=== PATIENT | male | born 1995 | race Caucasian/White ===

== ENCOUNTER 2021-12-12 22:43 | Emergency (ER) | payer OTHER ==
--- NOTE | 2021-12-12 22:53 | ED Physician Documentation ---
PD HPI CHEST PAIN - Stated complaint Stated Complaint: CHEST PX - Chief complaint Chief Complaint: Cardiac - History obtained from History obtained from: Patient - History of Present Illness Timing - onset: How many weeks ago (3) Timing - onset during: Rest, Light activity. No: Eating Timing - duration: Minutes Timing - details: Intermittant (he has had multiple brief episodes of seconds to minutes of sharp to aching substernal chest pain, occurring randomly without preceding symptoms. Occurs at rest and activity. Not associated with eating. No pain with breathing between times. Gets lightheaded with the pains.) Quality: Aching, Sharp, Pain. No: Pressure, Tightness Location: Substernal, Left chest Radiation: No: Neck, Back Improved by: No: Rest, Antacids Worsened by: Inspiration (deep breathing but not regular breaths). No: Exertion, Eating, Position Associated symptoms: Feeling faint / dizzy. No: Shortness of air, Diaphoresis, Palpitations Similar symptoms before: No diagnosis (seen by primary care without Dx as yet. Pt states pamela had COVID test done twice, that were negative. BP noted elevated with recent visit.) Recently seen: Clinic Review of Systems Constitutional: denies: Fever, Chills Nose: denies: Rhinorrhea / runny nose, Congestion Throat: denies: Sore throat Cardiac: denies: Palpitations, Pedal edema, Calf pain Respiratory: denies: Dyspnea, Cough GI: denies: Abdominal Pain, Nausea, Vomiting, Diarrhea Skin: denies: Rash, Lesions PD PAST MEDICAL HISTORY - Past Medical History Cardiovascular: None, Murmur (he states had murmur noted during basic training physical, with normal ECHO.) Respiratory: None Endocrine/Autoimmune: None GI: None - Present Medications Home Medications: Ambulatory Orders Medication Instructions Recorded Confirmed Albuterol Sulfate [Proair Hfa 1 - 2 puffs INH Q4H PRN 12/12/21 12/12/21 Inhaler] hydrOXYzine pamoate [Vistaril] 50 mg PO 12/12/21 Naproxen 500 mg PO BID #20 tab.sr 12/13/21 - Allergies Allergies/Adverse Reactions: Allergies Allergy/AdvReac Type Severity Reaction Status Date / Time Sulfa (Sulfonamide Allergy Unknown Verified 12/12/21 22:53 Antibiotics) PD ED PE NORMAL - Vitals Vital signs reviewed: Yes (presents tachycardic 106 at triage, but settles to normal rate. NSR.) - General General: Alert and oriented X 3, Well developed/nourished, Other (somewhat anxious. ) - HEENT HEENT: Pharynx benign - Neck Neck: Supple, no meningeal sign, No adenopathy, Thyroid normal - Cardiac Cardiac: RRR, No murmur - Respiratory Respiratory: Clear bilaterally, Other (no chestwall tenderness.) - Abdomen Abdomen: Soft, Non tender - Derm Derm: Normal color, Warm and dry - Extremities Extremities: Normal ROM s pain, No edema, No calf tenderness / cord - Neuro Neuro: Alert and oriented X 3, No motor deficit, Normal speech Results - Vitals Vitals: Oxygen O2 Source Room air - EKG (time done) 22:43 Rate: Rate (enter#) (96) Rhythm: NSR [place]: Normal Intervals: Normal [place] QRS: Normal Ischemia: Normal ST segments. No: ST elevation c/w ischemia, ST depression - Labs Labs: Laboratory Tests 12/12/21 12/12/21 12/12/21 23:20 23:20 23:20 WBC 7.8 RBC 4.81 Hgb 15.0 Hct 42.7 MCV 88.8 MCH 31.2 H MCHC 35.1 RDW 11.6 L Plt Count 295 MPV 8.7 Neut # (Auto) 4.0 Lymph # (Auto) 2.4 [place] # (Auto) 1.2 H Eos # (Auto) 0.1 Baso # (Auto) 0.0 Absolute Nucleated RBC 0.00 Nucleated RBC % 0.0 Sodium 136 Potassium 3.5 Chloride 99 L Carbon Dioxide 25 Anion Gap 12.0 BUN 12 Creatinine 0.9 Estimated GFR (MDRD) 104 Glucose 86 Calcium 9.3 Total Bilirubin 1.1 H AST 17 ALT 30 Alkaline Phosphatase 84 Troponin I High Sens 2.9 C-Reactive Protein 1.0 B-Natriuretic Peptide Total Protein 7.4 Albumin 4.8 Globulin 2.6 Albumin/Globulin Ratio 1.8 Lipase 22 12/12/21 23:20 WBC RBC Hgb Hct MCV MCH MCHC RDW Plt Count MPV Neut # (Auto) Lymph # (Auto) [place] # (Auto) Eos # (Auto) Baso # (Auto) Absolute Nucleated RBC Nucleated RBC % Sodium Potassium Chloride Carbon Dioxide Anion Gap BUN Creatinine Estimated GFR (MDRD) Glucose Calcium Total Bilirubin AST ALT Alkaline Phosphatase Troponin I High Sens C-Reactive Protein B-Natriuretic Peptide 5 Total Protein Albumin Globulin Albumin/Globulin Ratio Lipase - Rads (name of study) chest xray Radiology: Prelim report reviewed (normal), See rad report PD MEDICAL DECISION MAKING - ED course Complexity details: re-evaluated patient, considered differential, d/w patient ED course: does seem some anxiety component. Consider chest wall process or inflammatory condition, given sharp character and some slight pleuritic component. Certainly checked CXR and ECG/trop to ensure no more concerning process. Given the episodic pattern of the chest discomfort with lightheaded, could consider intermittent dysrhythmia. [facility] Departure - Departure Disposition: Home, Self Care Clinical Impression: Chest pain Qualifiers: Chest pain type: pleurodynia Qualified Code(s): R07.81 - Pleurodynia Condition: Stable Record reviewed to determine appropriate education?: Yes Instructions: ED Chest Pain Atypical Unkn Cause Follow-Up: [facility] [Provider Group] Prescriptions: Naproxen 500 mg PO BID #20 tab.sr Comments: Your EKG, chest x-ray, blood tests are normal without any signs of structural lung abnormality such as collapsed lung, pneumonia, fluid around the lung, nor any signs of heart injury such as heart failure or heart attack or inflammatory heart process. It sounds as though there is likely some chest wall or lung surface component to this as it does hurt for deep breaths etc. I would continue your albuterol inhaler and hydroxyzine prescribed by your primary care. To this add naproxen anti-inflammatory twice daily with food for the next 7 to 10 days. Follow-up with your primary care in the next several days. Given some episodes where the symptoms are worse randomly, your primary care could also consider setting up a ambulatory heart monitor that gets worn for a week or so to ensure there is no intermittent irregular heart rhythms. Return to the ER if worsening symptoms or other problems. Discharge Date/Time: 12/13/21 00:14
[2021-12-12] MEDS ORDERED: IBUPROFEN 600 MG TABLET PO STA (23:20)
[2021-12-12] MEDS ORDERED: MAG HYDROX/AL HYDROX/SIMETH 30 ML UDC PO STA (23:20)
[2021-12-12 23:33] LABS: BASOPHILS % (AUTO) 0.4 %; EOSINOPHILS # (AUTO) 0.1 10^3/uL (0.0-0.7); EOSINOPHILS % (AUTO) 1.7 %; HCT - HEMATOCRIT 42.7 % (42.0-52.0); LYMPHOCYTES # (AUTO) 2.4 10^3/uL (1.5-3.5); LYMPHOCYTES % (AUTO) 30.3 %; MEAN CORPUSCULAR HEMOGLOBIN 31.2 pg (27.0-31.0); MEAN CORPUSCULAR HGB CONC 35.1 g/dL (32.0-36.0); MEAN CORPUSCULAR VOLUME 88.8 fL (80.0-94.0); MEAN PLATELET VOLUME 8.7 fL (7.4-11.4); MONOCYTES # (AUTO) 1.2 10^3/uL (0.0-1.0); MONOCYTES % (AUTO) 15.9 %; NEUTROPHILS % (AUTO) 51.4 %; PLT - PLATELET COUNT 295 10^3/uL (130-450); RED BLOOD COUNT 4.81 10^6/uL (4.70-6.10); RED CELL DISTRIBUTION WIDTH 11.6 % (12.0-15.0); WHITE BLOOD COUNT 7.8 x10^3/uL (4.8-10.8)
--- NOTE | 2021-12-12 23:41 | XRAY Report ---
PROCEDURE: Chest 1 View X-Ray INDICATIONS: Chest Pain TECHNIQUE: One view of the chest was acquired. COMPARISON: None FINDINGS: Surgical changes and devices: None. Lungs and pleura: No pleural effusions or pneumothorax. Lungs are clear. Mediastinum: Mediastinal contours appear normal. Heart size is normal. Bones and chest wall: No suspicious bony lesions. Overlying soft tissues appear unremarkable. IMPRESSION: No acute pulmonary process. Reviewed by: Chloé Perez MD on 12/12/2021 11:40 PM [facility] Approved by: Chloé Perez MD on 12/12/2021 11:40 PM [facility] Station ID: [id number]
[2021-12-12 23:56] LABS: ALBUMIN 4.8 g/dL (3.2-5.5); ALBUMIN/GLOBULIN RATIO 1.8 (1.0-2.2); BILIRUBIN,TOTAL 1.1 mg/dL (0.2-1.0); CALCIUM 9.3 mg/dL (8.5-10.3); CREATININE 0.9 mg/dL (0.6-1.2); POTASSIUM 3.5 mmol/L (3.5-5.0); TOTAL PROTEIN 7.4 g/dL (6.7-8.2)
[2021-12-13 00:14] VITALS: BP 123/66
== END 2021-12-13 00:14 | disposition home or self-care (01) ==
LOC: ED 22:43
DX: R07.81 Pleurodynia (principal)
CPT/HCPCS: 36415; 71045; 80053; 83690; 83880; 84484; 85025; 86140; 93005; 99284; A9270

== ENCOUNTER 2022-01-09 16:05 | Outpatient (CLI) | payer OTHER | END 2022-01-09 16:06 | disposition home or self-care (01) | LOC: RT 16:05 | DX: R06.09 Other forms of dyspnea (principal); R06.2 Wheezing | CPT/HCPCS: 94010; 94727; 94729 ==

== ENCOUNTER 2022-01-13 15:12 | Outpatient (CLI) | payer OTHER ==
--- NOTE | 2022-01-13 16:14 | SLEEP CARE CONSULTATION ---
Information from patient questionnaire entered by Terence Heaton MA. I have reviewed and concur with the information entered by Terence Heaton MA. This document represents the service I personally performed and the decisions made by me, Natalia Maki ARNP. History of Present Illness Service Date and Time: 01/13/2022 1512 Reason for Visit: New patient (ONSET 11/2017, NO PRIORS,) Chief Complaint: reports: Insomnia, Unrefreshed sleep, Snoring, Excessive daytim e sleepiness, Observed pauses in breathing, Fatigue, Frequent awakenings at night, Other Date of Onset: 4-5 years Usual bedtime: 1000 pm Time it takes to fall asleep: 2 hours Snores at night: Yes Observed to quit breathing while asleep: Yes Sleeps alone due to snoring: No Number of times waking at night: up to 3 Reasons for waking at night: reports: Bathroom, Other (unknown reason, will check time). denies: Choking, Snoring, Gasping for air Toss, Turn, or Twitch while sleeping: Yes Recalls having dreams: Yes (can't remember dreaming for a while) Usually gets out of bed at: 0800 Feels refreshed in the morning: No (feel really fatigued and "droopy" for about 2 hours) Morning headache: Yes (almost every morning, don't last long 30 mins to 2 hours) Sleepy or fatigued during the day: Yes Ever fallen asleep while driving: No Takes day naps: No (try not to) Prior sleep studies: No Additional HPI information: I had the pleasure of seeing SHAUN VALERIO today regarding the possibility of him having a sleep disorder. His current complaints are excessive daytime sleepiness, fatigue, frequent night awakenings, insomnia, observed pauses in b reathing, snoring and unrefreshed sleep. He has been having sleep issues and has been on hydroxyzine. His told him he snores and that he has pauses in breathing when sleeping. - Parasomnia Symptoms Ever been unable to move upon waking from sleep: No Walks in sleep: No Talks in sleep: Yes Ever acted out dreams in sleep: No Ever felt weak in the knees when startled or emotional: Yes (have not fallen) Bothered by creepy, crawly, restless sensations in legs: Yes (all the time, unless active) Problems with memory or concentration: Yes (both) Subjective Initial [place] Sleepiness Scale score: 11 (2021) Past Medical History Past Medical History: reports: Other (minor heart murmur) Social History The patient's occupation is a AT. Patient is and lives in . Have you smoked in the past 12 months: Yes (vaping daily) Cigarettes per day (20/pack): 20 Years of smokin (quit cig. 2019) Smoking Pack Years: 1.0 Alcohol use: Yes Alcohol amount and frequency: 2-3 x weekly Caffeine use: Yes Caffeine amount and frequency: 1-2 x daily Family History Family history of sleep disordered breathing: Yes Family Hx Sleep Apnea: Mother: Snoring, Father: Snoring, Sibling: Snoring, Grandparent: Snoring, Sleep apnea - Treated, Sleep apnea - Untreated Allergies and Home Medications Known drug allergies: Yes (Sulfas) Drug allergies reviewed: Yes Home medication list reviewed: Yes (Hydroxyzine, prn for sleep) Allergy and home medication list: Allergies Sulfa (Sulfonamide Antibiotics) Allergy (Verified 12/12/21 22:53) Unknown Review of Systems Cardiovascular: reports: chest pain (chronic, musculoskeletal/stress and anxiety related) Respiratory: reports: shortness of breath, wheeze, chronic cough Neurological: reports: headaches Psychiatric: reports: anxiety, depression Ear/Nose/Throat: reports: nasal congestion, wisdom teeth removed. denies: tonsillectomy Physical Exam Blood Pressure: 134/88 (right, pulse 80, resp 16) Cuff size: wrist Heart Rate: 83 O2 Saturation: 96 (paper mask) Height: 5 ft 9 in Weight: 195 lb (clothes) Body Mass Index: 28.8 BMI Classification: Overweight Neck circumference: 15.5 (inches) Mouth and throat: normal Soft palate: normal Hard palate: arched Uvula: normal Uvula visualization: 100% Mallampati Class I Tongue: enlarged in size with teeth karimi on lateral edges Tonsils: small Neck: normal w/o lymphadenopathy or thyromegaly Heart: regular rate and rhythm Lungs: clear bilaterally Impression and Plan 1. Suspected Obstructive Sleep Apnea-Hypopnea Syndrome, as suggested by a history of loud and irregular snoring, observed cessation of breath while asleep, morning headache, frequent awakening during the night, unrefreshed sleep, cognitive impairment, and excessive daytime sleepiness. Narrow oropharynx and obesity are common predisposing factors for obstructive sleep apnea-hypopnea syndrome. I recommend proceeding to polysomnography to confirm the diagnosis and to assess severity. If the patient has significant sleep disordered breathing, a manual CPAP titration study will also be performed to find the optimal treatment pressure. I informed the patient of what the sleep studies involve and after some discussion, obtained agreement to proceed. The pathophysiology of obstructive sleep apnea-hypopnea syndrome was discussed with the patient and health risks of cardiovascular and cerebrovascular disease if not treated. Risks of drowsy driving discussed in detail and patient advised to avoid long distance driving and to puller machine at the first sign of drowsiness. Patient agreed to plan. * Schedule polysomnography * Avoid long distance driving or driving when feeling sleepy. * Avoid alcohol, sedative and muscle relaxant around bedtime. * Attempt to lose weight. * Review instructions provided by trained office staff on how to prepare for the sleep study. * Return for follow-up after sleep study completed. Counseling Topics: Weight loss health impact Visit Type: In Office Time Spent with Patient (minutes): 31 Provider Statement: I spent 100% of the Face to Face Visit with the patient with greater than 50% spent counseling the patient and coordination of care.
[2022-01-13 16:15] VITALS: BP 134/88
== END 2022-01-13 15:13 | disposition home or self-care (01) ==
LOC: SC 15:12
PROVIDERS: ATTEND Nurse Practitioner Family
DX: R06.83 Snoring (principal); R06.81 Apnea, not elsewhere classified; R51.9 Headache, unspecified; G47.8 Other sleep disorders; R41.89 Other symptoms and signs involving cognitive functions and awareness; G47.10 Hypersomnia, unspecified
CPT/HCPCS: 99203; 99212

== ENCOUNTER 2022-01-27 14:08 | Outpatient (CLI) | payer OTHER | END 2022-01-27 14:09 | disposition home or self-care (01) | LOC: SC 14:08 | PROVIDERS: ATTEND Nurse Practitioner Family | DX: R09.02 Hypoxemia (principal) | CPT/HCPCS: 95806 ==